=== PATIENT | female | born 1995 | race African-American/Black ===

== ENCOUNTER 2016-11-11 12:52 | Emergency (ER) | payer MEDICAID ==
[~2016-11-11] VITALS: Ht 175.3 cm; Wt 89.6 kg
[2016-11-11 15:44] VITALS: BP 111/62
[2016-11-11] MEDS ORDERED: HYDROcodone-ACET 10/325MG TAB PO ONE (16:00)
[2016-11-11] MEDS ORDERED: LIDOCAINE 1% HCL (LOCAL ANESTH.) INJ 20ML MDV IN ONE (16:00)
[2016-11-11] MEDS ORDERED: MAGNESIUM CITRATE SOLUTION 300 ML BTL PO ONE (16:30)
[2016-11-11 18:21] LABS: Urine Bilirubin Negative (Negative); Urine Blood 1+ /uL (Negative); Urine Color Yellow (Yellow); Urine Glucose Normal (Normal); Urine Ketone Negative (Negative); Urine Mucus FEW (None Seen); Urine Nitrite Negative (Negative); Urine RBC 55 /hpf (0 - 4); Urine Squamous Epithelial Cell FEW /hpf (<5); Urine Urobilinogen Normal (Negative)
== END 2016-11-11 18:42 | disposition home or self-care (01) ==
LOC: ER 12:52
DX: K64.8 Other hemorrhoids (principal); N20.0 Calculus of kidney; J45.909 Unspecified asthma, uncomplicated; Z87.442 Personal history of urinary calculi
CPT/HCPCS: 46083; 74176; 81001; 99285; J2001

== ENCOUNTER 2017-01-06 18:08 | Emergency (ER) | payer MEDICAID ==
[~2017-01-06] VITALS: Ht 175.3 cm; Wt 94.3 kg
[2017-01-06 18:43] VITALS: BP 114/66
== END 2017-01-06 20:29 | disposition home or self-care (01) ==
LOC: ER 18:08
DX: N76.0 Acute vaginitis (principal); J45.909 Unspecified asthma, uncomplicated; Z87.442 Personal history of urinary calculi

== ENCOUNTER 2017-04-29 15:12 | Emergency (ER) | payer MEDICAID ==
[~2017-04-29] VITALS: Ht 175.3 cm; Wt 95.7 kg
[2017-04-29 15:50] VITALS: BP 96/53
[2017-04-29] MEDS ORDERED: IPRATROPIUM BROM 0.5 MG/2.5ML INH SOL NEB ONE (17:30)
[2017-04-29] MEDS ORDERED: ALBUTEROL SULF 2.5 MG/0.5ML(0.5%) NEB SOLN NEB ONE (17:30)
== END 2017-04-29 18:14 | disposition home or self-care (01) ==
LOC: ER 15:16
DX: J45.901 Unspecified asthma with (acute) exacerbation (principal); N39.0 Urinary tract infection, site not specified; Z87.442 Personal history of urinary calculi; L08.9 Local infection of the skin and subcutaneous tissue, unspecified
CPT/HCPCS: 81025; 94640

== ENCOUNTER 2019-11-27 13:43 | Observation (INO) | payer MEDICAID ==
[~2019-11-27] VITALS: Ht 175.3 cm; Wt 81.6 kg
[2019-11-27] MEDS ORDERED: TERBUTALINE SULFATE 1 MG/ML 1ML VIAL SC ONE (14:57)
[2019-11-27] MEDS: TERBUTALINE SULFATE 1 MG/ML 1ML VIAL SC SCH ×2 (15:06→15:41)
== END 2019-11-27 16:39 | disposition home or self-care (01) ==
LOC: LDRP 13:43
PROVIDERS: ADMIT Obstetrics & Gynecology; ATTEND Obstetrics & Gynecology
DX: O40.3XX0 Polyhydramnios, third trimester, not applicable or unspecified (principal); O62.9 Abnormality of forces of labor, unspecified; O34.63 Maternal care for abnormality of vagina, third trimester; N89.8 Other specified noninflammatory disorders of vagina; Z91.040 Latex allergy status; Z3A.30 30 weeks gestation of pregnancy
CPT/HCPCS: 59025; 81002; 96372; G0378; J3105

== ENCOUNTER 2020-01-20 13:53 | Observation (INO) | payer MEDICAID ==
[2020-01-20] MEDS ORDERED: PREN27TA7 OR (14:41)
== END 2020-01-20 16:02 | disposition home or self-care (01) ==
LOC: LDRP 13:53
PROVIDERS: ADMIT Obstetrics & Gynecology; ATTEND Obstetrics & Gynecology
DX: O62.9 Abnormality of forces of labor, unspecified (principal); O42.92 Full-term premature rupture of membranes, unspecified as to length of time between rupture and onset of labor; Z3A.38 38 weeks gestation of pregnancy
CPT/HCPCS: 59025; 81002; 84112; G0378; Q0114